=== PATIENT | male | born 1970 | race American Indian/Alaskan Native ===

== ENCOUNTER 2018-10-08 09:54 | Day surgery (SDC) | payer BC ==
[2018-10-06 12:18] VITALS: BMI 25.0
[2018-10-08 11:45] VITALS: O2SAT 100
[2018-10-08] MEDS ORDERED: Propofol 10 mg/ml Inj (20 ML) ONE (13:10)
[2018-10-08] MEDS ORDERED: Lidocaine Hydrochloride 5 ML INJ ONE (13:18)
[2018-10-08] MEDS ORDERED: Lidocaine Hydrochloride 10 ML INJ ONE (13:21)
[2018-10-08] MEDS ORDERED: Bupivacaine HCl 0.25% PF (10 ml) Inj ONE (13:21)
[2018-10-08] MEDS ORDERED: ceFAZolin 1 gm in NS 1 GM/100 ML BAG IVPB ONE (13:21)
[2018-10-08] MEDS ORDERED: Oxycodone/Acetaminophen 5/325 mg Tab PO PRN (13:45)
[2018-10-08] MEDS: HYDROmorphone 0.5 mg/0.5 ml ISec IVP PRN ×2 (13:55→14:13)
[2018-10-08] MEDS ORDERED: HYDROmorphone 1 mg/ml ISec ONE (14:16)
[2018-10-08 15:18] VITALS: BP 120/60; PULSE 88; RESP 18; TEMP 97
--- NOTE | 2018-10-09 11:23 | OP ---
PROCEDURE DATE: 10/08/2018 PREOPERATIVE DIAGNOSIS: Mass of the right third finger. POSTOPERATIVE DIAGNOSIS: Mass of the right third finger. PROCEDURE PERFORMED: Wide and deep excision of mass of the right third finger. SURGEON: Mahesh Yusuf MD ANESTHESIA: General. BLOOD LOSS: 20 mL. POSTOPERATIVE CONDITION: Stable. INDICATION FOR SURGERY: This is a 48-year-old male with a mass of his right finger, which had been increasing in size, becoming more painful. He will undergo wide deep excision. DESCRIPTION OF PROCEDURE: The patient was taken to the operating room. General anesthesia was administered. An elliptical incision was made throughout the mass, it was dissected free down to the tendon and removed. Bleeding was controlled using the Bovie. A digital blood vessel was repaired. The wound was irrigated with copious amounts of saline solution. The tissue flap closure was performed with multiple layers of Monocryl, subcuticular Monocryl, and nylon sutures. The patient tolerated the procedure well, returned to the recovery room in stable condition. Mahesh Yusuf MD
== END 2018-10-08 15:30 | disposition home or self-care (01) ==
LOC: C.SDS 09:54
PROVIDERS: ATTEND Surgery
DX: D36.10 Benign neoplasm of peripheral nerves and autonomic nervous system, unspecified (principal)
CPT/HCPCS: 26160; 88307; J0690; J1170; J2704; J3010